=== PATIENT | male | born 1950 | race Caucasian/White ===

== ENCOUNTER 2024-02-21 08:00 | Outpatient (CLI) | payer OTHER | END 2024-02-21 14:30 | disposition home or self-care (01) | LOC: SLB 08:00 → EDSTATUS 02-23 07:30 | PROVIDERS: ATTEND Orthopaedic Surgery Sports Medicine | DX: M17.11 Unilateral primary osteoarthritis, right knee (principal) | CPT/HCPCS: 87081 ==